=== PATIENT | male | born 1960 | race Caucasian/White ===

== ENCOUNTER 2017-02-11 23:44 | Inpatient (IN) | payer BC ==
--- NOTE | ~2017-02-11 | DS ---
Unit #: [id number] #: [id number] Patient: ME RECINOS [id number] [facility] [address] [place] [address] [id number] I MR#: [id number] NAME: EM RECINOS ROOM: [facility] Age: 56 Sex: M Admission Date: 02/11/2017 : 1960 Discharge Date: 02/15/2017 Attending Physician: Kevin Hugo M.D. Primary Care Physician: Primary Care Physician No DISCHARGE SUMMARY REASON FOR ADMISSION Alcohol detox. DIAGNOSTIC STUDIES LABORATORY RESULTS: Remarkable for MCV 100.5. Urine drug screen positive for benzodiazepine. HOSPITAL COURSE The patient was admitted to inpatient unit on 02/11/2017 and discharged on 02/15/2017. The patient was treated with chemical dependency group, medication management, and structured milieu. The patient was treated with detox protocol, detox monitoring, responded well to the above modalities of treatment. Subsequently, the patient was discharged with a plan to follow up in outpatient program. DISCHARGE MEDICATIONS None. DISCHARGE DIAGNOSES Psychiatric: 1. Alcohol use disorder, severe, F10.20. 2. Mood disorder, not otherwise specified, F32.9. Secondary diagnosis: Deferred. Medical diagnosis: None. Stressors: Psychosocial stressors. DISCHARGE INSTRUCTIONS The patient to follow up in outpatient clinic as per psych social worker. CONDITION ON DISCHARGE The patient was pleasant and cooperative. Denied any psychotic symptom or any suicidal ideation. PROGNOSIS Guarded. DIET AND ACTIVITY As tolerated. Dictated by... Unit #: [id number] #: [id number] Patient: EM RECINOS Gini Hines/adelita TD: 02/16/2017 06:40 JOB #: [id number] DISCHARGE SUMMARY Page 1 of 1 X Kevin Hugo MD X DISCHARGE SUMMARY
--- NOTE | ~2017-02-11 | PN ---
Unit #: [id number] #: [id number] Patient: NARESH RECINOS [id number] [facility] [address] [place] [address] [id number] I MR#: [id number] NAME: NARESH RECINOS ROOM: [facility] Age: 56 Sex: M Admission Date: 02/11/2017 : 1960 Attending Physician: Kevin Hugo M.D. Admitting Physician: Kevin Hugo M.D. Primary Care Physician: Primary Care Physician Marry ARAIZA PROGRESS NOTES DATE OF SERVICE: 02/14/2017 DISCUSSION Naresh Recinos is a 56-year-old male, seen on 02/14/2017. The patient interviewed, chart reviewed, and obtained information from nursing staff. The patient was compliant and cooperative. Mood was sad, dysphoric, flat affect. Vital signs; temperature 98.4, pulse 104, and blood pressure 121/86. The patient is making progress. Complete review of systems unremarkable. MENTAL STATUS EXAMINATION General appearance, the patient dressed casually. Attention span and concentration, fair. Oriented in place and person. Mood and affect were sad and dysphoric. Speech, monotone. Thought process, concrete. The patient denied any thoughts of harming self or others or any psychotic symptom. Recent and remote memory, poor. Insight and judgment, poor. DIAGNOSIS Alcohol use disorder, severe. ASSESSMENT AND PLAN Continue with current treatment and therapeutic protocol. If needed, consider further adjustment of medication. Dictated by... Gini Hines/adelita TD: 02/15/2017 13:44 JOB #: [id number] Unit #: [id number] #: [id number] Patient: NARESH RECINOS PROGRESS NOTES Page 1 of 1 X Kevin Hugo MD PROGRESS NOTE
--- NOTE | ~2017-02-11 | PA ---
Unit #: [id number] #: [id number] Patient: NARESH RECINOS [id number] [facility] [address] [place] [address] [id number] I MR#: [id number] NAME: NARESH RECINOS ROOM: P266 Age: 56 Sex: M Admission Date: 02/11/2017 : 1960 Date of Assessment: 02/12/2017 Attending Physician: Kevin Hugo M.D. Admitting Physician: Kevin Hugo M.D. Primary Care Physician: Primary Care Physician No PSYCHIATRIC ASSESSMENT INFORMANTS The patient reliability, fair informant and chart reliability, good. CHIEF COMPLAINT Alcohol abuse and alcohol withdrawal. HISTORY OF PRESENT ILLNESS Mr. Naresh Recinos is a 56-year-old male, presented with the above-mentioned complaint. The patient reported that he has been drinking beer on a daily basis since age 14. The patient reported currently drinking 6 to 12 beers, last use was 02/11/2017 of 64 ounces. The patient's BAL on admission was 0.189. The patient reported currently homeless, previous legal charges, currently no work. The patient reported he continues to grieve over the loss of child, son, for the last 30 years. The patient reported feeling sad and depressed, but currently denied any suicidal or homicidal ideation. Denied any auditory or visual hallucination. The patient reported having withdrawal symptom, anxiety, nervousness, and mood lability. The patient needing inpatient admission at this time for psychiatric stabilization. PAST PSYCHIATRIC HISTORY Remarkable for history of inpatient treatment for chemical dependency in the past. No history of any suicide attempt. FAMILY HISTORY AND SOCIAL HISTORY Family history unremarkable and poor support system. According to the intake report, history of substance abuse in father. MEDICAL HISTORY Unremarkable for any chronic medical condition. Musculoskeletal; muscle strength and tone, no atrophy or abnormal movement. Gait normal. MEDICATION HISTORY None. ALLERGIES No known drug allergies. SUBSTANCE ABUSE HISTORY The patient reported tobacco use, age of onset 10; alcohol, age of onset 11; and marijuana, age of onset 13. The patient reported history of blackout. No history of any IV drug use. No history of any HIV or hepatitis. Unit #: [id number] #: [id number] Patient: NARESH RECINOS REVIEW OF SYSTEMS HEENT: Eyes, clear. Ears, nose, mouth, and throat; clear. CARDIOVASCULAR: Unremarkable. RESPIRATORY: Unremarkable. GI: Unremarkable. : Unremarkable. SKIN: Unremarkable. LYMPH NODE: Unremarkable. NEUROLOGIC: Unremarkable. ENDOCRINE: Unremarkable. HEMATOLOGIC: Unremarkable. ALLERGIC/IMMUNOLOGIC: Unremarkable. MUSCULOSKELETAL: Muscle strength and tone, no atrophy or abnormal movement. Gait normal. MENTAL STATUS EXAMINATION CONSTITUTIONAL: Measurement of vital signs; temperature 98.6, heart rate 92, respiratory rate 16, blood pressure 144/92, height 6 feet 1 inch, and weight 170 pounds. GENERAL APPEARANCE: The patient dressed casually. The patient did not show any facial deformity. MUSCULOSKELETAL: Please see above. PSYCHIATRIC EXAMINATION Description of speech; regular rate, normal volume, normal articulation, coherent, and spontaneous. Description of thought process, goal directed. Description of association, intact. Description of abnormal psychotic thinking; the patient denied any hallucinations or delusions or any suicidal or homicidal ideation, but history of alcohol abuse. Description of the patient's judgment: Concerning everyday activity, poor. Social situation, poor. Concerning psychiatric condition, poor. Complete mental status examination; oriented in time, place, and person. Recent and remote memory, fair. Attention span and concentration, fair. Language, able to name object and repeat phrases. Fund of knowledge, aware of current event and passive vocabulary intact. Mood and affect, sad and dysphoric. Insight and judgment, fair to poor. ASSETS AND LIABILITIES Assets, the patient is articulate and able to take care of his ADL. Liability, history of substance abuse. ADMITTING DIAGNOSES Psychiatric: Alcohol use disorder, severe, F10.20 and mood disorder, not otherwise specified, F32.9. Secondary diagnosis: Deferred. Medical diagnosis: None. Stressors: Psychosocial stressors, homelessness, and poor support system. PSYCHIATRIC PLAN AND TREATMENT GOAL AND DISCHARGE PLAN 1. Advised to admit the patient on the inpatient unit. Provide safe, supportive, and structured environment. 2. Ordered labs; CBC, CMP, UA, and UDS. 3. Detox monitoring and detox protocol. Unit #: [id number] #: [id number] Patient: NARESH RECINOS 4. The patient to attend all the programing, group therapy, individual therapy, and medication management. If needed, consider further adjustment of medication. TREATMENT GOAL To attain euthymic mood, gain insight into his problem, and learn coping skills. DISCHARGE PLAN Plan to stabilize the patient and consider followup in outpatient program. ESTIMATED LENGTH OF STAY 5 days. Dictated by... Gini Hines/adelita TD: 02/12/2017 15:18 JOB #: [id number] PSYCHIATRIC ASSESSMENT X Kevin Hugo MD X PSYCHIATRIC ASSESSMENT
--- NOTE | ~2017-02-11 | HP ---
Unit #: [id number] #: [id number] Patient: NARESH RECINOS [id number] [place] [address] [id number] I MR#: [id number] NAME: NARESH RECINOS ROOM: P266 Age: 56 Sex: M Admission Date: 02/11/2017 : 1960 Attending Physician: Kevin Hugo M.D. Admitting Physician: Kevin Hugo M.D. Primary Care Physician: Primary Care Physician No HISTORY AND PHYSICAL HISTORY OF PRESENT ILLNESS Naresh is a 56 year old admitted to [address] [place] [address] because of his abuse of alcohol. PAST MEDICAL HISTORY Long history of alcohol abuse. PAST SURGICAL HISTORY Abdominal many years ago. ALLERGIES No known drug allergies. SOCIAL HISTORY Smokes 1-1/2 packs per day. Drinks at least 12 beers on a daily basis and denies illicit drug use. FAMILY HISTORY Medically noncontributory. REVIEW OF SYSTEMS CONSTITUTIONAL: No fever or chills. HEENT: Denies any sore throat, ear pain or runny nose. CARDIOVASCULAR: Denies chest pain, irregular heart rhythm or palpitations. CHEST: Denies shortness of breath or cough. No hemoptysis. GASTROINTESTINAL: Denies nausea, vomiting, diarrhea or chronic constipation. ENDOCRINE: Denies history of increased thirst or urination. No recent significant weight loss or gain. GENITOURINARY: Denies dysuria, frequency, or hematuria. SKIN: Denies any rashes. HEMATOLOGIC: Denies history of increased bleeding or bruising. MUSCULOSKELETAL: Denies any hot, swollen joints. No generalized muscle pain. NEUROLOGIC: Denies problems with vision or speech. No frequent, severe headaches. No numbness, tingling or weakness in any extremities. Denies loss of bladder or bowel control. CURRENT MEDICATIONS Detox protocol. PHYSICAL EXAMINATION GENERAL: Alert, well-nourished, in no apparent distress. Unit #: [id number] #: [id number] Patient: NARESH RECINOS VITAL SIGNS: Blood pressure 144/92, heart rate 80, respirations 16, temperature 98.6. WEIGHT: 170. HEIGHT: 6 feet 1 inch. SKIN: Warm and dry without rash or lesion. HEENT: Normocephalic. TMs not viewed. Oral and nasal passages clear. Conjunctivae clear. PERRLA. EOMs intact. NECK: Supple without lymphadenopathy or thyromegaly. HEART: Regular rate and rhythm without murmur. LUNGS: Clear. ABDOMEN: Soft, nontender. : Not done. EXTREMITIES: No evidence of cyanosis, clubbing or edema. Moves all without focal deficit. NEUROLOGICAL: Grossly within normal limits. Cranial Nerves: II: Visual jennings are intact. III, IV AND : Extraocular movements are intact. Pupils are equal, round and reactive to light. V: Facial sensation is grossly normal. VII: Facial movements and expression are normal. VIII: Auditory acuity grossly intact. IX, X: Uvula is midline. Phonation is normal. XI: Patient shrugs shoulders and turns head normally. XII: Tongue protrudes in the midline. Sensory and Motor Function: Sensory and motor sensation is grossly normal. Motor: moves all extremities well. Coordination: Gait is normal. Deep Tendon Reflexes: Intact. IMPRESSION Psychiatric admission. RECOMMENDATIONS PSYCHIATRIC: Per psychiatrist. MEDICAL: See no contraindications to participate in facility's activities. MEDICAL PROGNOSIS Good. MEDICAL CONDITION Stable. Dictated by... Lili Wagner P.A.-C. for Gini Dowling/angie TD: 02/13/2017 15:49 JOB #: [id number] Unit #: [id number] #: [id number] Patient: NARESH RECINOS HISTORY AND PHYSICAL X Lili Wagner X HISTORY AND PHYSICAL
--- NOTE | ~2017-02-11 | PN ---
Unit #: [id number] #: [id number] Patient: NARESH RECINOS [id number] [facility] [address] [place] [address] [id number] I MR#: [id number] NAME: NARESH RECINOS ROOM: 66 Age: 56 Sex: M Admission Date: 02/11/2017 : 1960 Attending Physician: Kevin Hugo M.D. Admitting Physician: Kevin Hugo M.D. Primary Care Physician: Primary Care Physician Marry CASSIDY NOTES DATE 02/13/2017 DISCUSSION Naresh Recinos is a 56-year-old male seen on 02/13/2017. The patient interviewed, chart reviewed. Obtained information from nursing staff. The patient was compliant and cooperative currently having withdrawal from alcohol. The patient was isolative, guarded, poor hygiene and grooming, sad, depressed, flat affect. The patient was cooperative, redirectable. The patient received Ativan as part of the detox protocol with vital signs 141/90 this morning, pulse 90. Complete review of systems unremarkable. MENTAL STATUS EXAMINATION General appearance, the patient dressed casually. Hygiene and grooming poor. Attention span and concentration poor. Oriented to place and person. Mood and affect labile. Speech slow. Thought process circumstantial, guarded. The patient denied any thoughts of harming self or others but guarded, isolative, seclusive. Recent and remote memory poor. Insight and judgement poor. DIAGNOSES Alcohol abuse disorder severe. Mood disorder NOS ASSESSMENT/PLAN Advise to continue with current medication and therapeutic protocol. We will monitor response to medication and make further adjustment of medication. Dictated by... Gini Hines/katelyn TD: 02/15/2017 03:07 JOB #: [id number] Unit #: [id number] #: [id number] Patient: NARESH RECINOS TEODORA CASSIDY NOTES X Kevin Hugo MD PROGRESS NOTE
[~2017-02-11 23:44] MED LIST: EPIPEN0.3 MG/0.1 IM; PREDNISONE PO
[2017-02-12 09:26] LABS: BASOPHIL# 0.1 X10e3 (0-0.3); BASOPHIL% 0.9 % (0-2.5); EOSINOPHIL# 0.1 X10e3 (0-0.7); EOSINOPHIL% 1.8 % (0.0-7.0); HEMATOCRIT 43.6 % (38.0-50.0); HEMOGLOBIN 14.8 gm/dL (13.0-16.0); LYMPHOCYTE# 1.9 X10e3 (1.0-3.5); LYMPHOCYTE% 33.4 % (17.0-45.0); MEAN CELL VOLUME 100.5 FL (83-96); MEAN CORPUSCULAR HEMOGLOBIN 34.1 PG (28-34); MEAN CORPUSCULAR HGB CONC 33.9 g/dL (30-36); MEAN PLATELET VOLUME 8.1 FL (6.5-11.5); MONOCYTE# 0.6 X10e3 (0-1.0); MONOCYTE% 10.2 % (3.0-12.0); NEUTROPHIL# 3.1 X10e3 (1.5-7.1); NEUTROPHIL% 53.7 % (40-75); PLATELET COUNT 197 X10e3 (140-420); RED BLOOD COUNT 4.34 X10e (3.90-5.60); WHITE BLOOD COUNT 5.7 X10e3 (4.0-10.5)
[2017-02-12 09:45] LABS: THYROID STIMULATING HORMONE 4.5 uIU/ml (0.34-5.60)
[2017-02-12 09:52] LABS: ALBUMIN SERUM 3.8 g/dL (3.5-5.0); ALKALINE PHOSPHATASE 37 U/L (32-92); ALT (SGPT) 20 U/L (10-40); AST (SGOT) 21 U/L (10-42); BILIRUBIN,TOTAL 0.7 mg/dL (0.2-2.0); BLOOD UREA NITROGEN <5 mg/dL (9-23); BUN/CREATININE RATIO 7.14; CALCIUM SERUM 9.1 mg/dL (8.4-10.2); CARBON DIOXIDE 26 mmol/L (22-31); CHLORIDE 102 mmol/L (100-111); CREATININE SERUM 0.7 mg/dL (0.6-1.4); FREE THYROXIN (T4) 0.79 ng/dL (0.58-1.64); GLOM FILT RATE Estimated ABOVE60 mL/min (>60); GLUCOSE FASTING 79 mg/dL (70-110); POTASSIUM 4.5 mmol/L (3.5-5.1); PROTEIN TOTAL SERUM 6.4 g/dL (6.0-8.3); SODIUM 139 mmol/L (135-145)
[2017-02-12 09:56] LABS: DIFF IND NO
[2017-02-14 14:11] LABS: URINE APPEARANCE CLEAR; URINE BILIRUBIN NEG (NEG); URINE BLOOD NEG (NEG); URINE COLOR YELLOW; URINE GLUCOSE NEG (NEG); URINE KETONE NEG (NEG); URINE LEUKOCYTE ESTERASE NEG (NEG); URINE NITRATE NEG (NEG); URINE PROTEIN NEG (NEG); URINE SPECIFIC GRAVITY 1.007 (1.003-1.035); URINE UROBILINOGEN 0.2 MG/DL (NEG)
[2017-02-14 14:36] LABS: AMPHETAMINE NEG (NEG); BARBITURATES NEG (NEG); BENZODIAZEPINES POS (NEG); COCAINE NEG (NEG); MARIJUANA NEG (NEG); OPIATES NEG (NEG); TRICYCLIC ANTIDEPRESSANTS POS (NEG); U METHADONE NEG (NEG)
== END 2017-02-15 11:30 | disposition home or self-care (01) | DRG 897 ==
LOC: P2L 23:44
PROVIDERS: Psychiatry & Neurology Psychiatry
PROC: HZ2ZZZZ Detoxification Services for Substance Abuse Treatment (ICD-10-PCS; principal; 2017-02-11)
DX: F10.20 Alcohol dependence, uncomplicated (principal); F39 Unspecified mood [affective] disorder; F17.210 Nicotine dependence, cigarettes, uncomplicated
CPT/HCPCS: 80053; 80307; 81003; 84439; 84443; 85025; 86592